=== PATIENT | female | born 1930 | race Caucasian/White ===

== ENCOUNTER 2017-02-01 10:26 | Day surgery (SDC) | payer MEDICARE, BC ==
[2017-02-01] MEDS ORDERED: Sodium Chloride 0.9% 5 ML Syringe FLUSH PRN (10:30)
[2017-02-01] MEDS ORDERED: Lactated Ringers 1,000 ML IV SCH (10:30)
[2017-02-01] MEDS ORDERED: Propofol 200 MG/20 ML SDV ONE (11:25)
[2017-02-01] MEDS ORDERED: Midazolam 1 MG/ML 2 ML SDV ONE (11:25)
--- NOTE | 2017-02-01 12:48 | PCM.PN ---
- General Info Date of Service: 02/01/17 - Review of Systems Systems Review Comment:: 86 y/o female with history of colon cancer and recent symptoms of weight loss here for colonoscopy. Her last colonoscopy with about 3 years ago. She is medically stable to proceed with no recent significant changes to her health status other then recent removal of a melanoma from her arm. I have discussed the proposed colonoscopy with the patient. Risks such as but not limited to bleeding and GI injury discussed and she agrees to proceed. - Patient Data Vitals - Most Recent: Last Vital Signs Temp 97.2 F 02/01/17 11:02 Pulse 68 02/01/17 11:02 Resp 14 02/01/17 11:02 BP 124/78 02/01/17 11:02 Pulse Ox 96 02/01/17 11:02 Weight - Most Recent: 51.528 kg Med Orders - Current: Current Medications Lactated Ringer's (Ringers, Lactated) 1,000 mls @ 50 mls/hr IV ASDIRECTED HENRY Last Admin: 02/01/17 11:29 Dose: 50 mls/hr Sodium Chloride (Syrex Flush) 5 ml FLUSH Q8HR PRN PRN Reason: Keep Vein Open Discontinued Medications Midazolam HCl (Versed 1 Mg/Ml) Confirm Administered Dose 2 mg .ROUTE .STK-MED ONE Stop: 02/01/17 11:26 Propofol (Diprivan 20 Ml) Confirm Administered Dose 400 mg .ROUTE .STK-MED ONE Stop: 02/01/17 11:26 - Problem List Review Problem List Initiated/Reviewed/Updated: Yes - My Orders Last 24 Hours: My Active Orders 01/31/17 15:33 Resuscitation Status Routine 02/01/17 10:30 Patient to Empty Bladder [RC] ASDIRECTED Peripheral IV Care [RC] . DIRECTED Verify Patient Consent Obtain [RC] ASDIRECTED Lactated Ringers [Ringers, Lactated] 1,000 ml IV ASDIRECTED Sodium Chloride 0.9% [Syrex Flush] 5 ml FLUSH Q8HR PRN Peripheral IV Insertion Adult [OM.PC] Routine 02/01/17 Breakfast Nothing Per Oral Diet [DIET] - Assessment Assessment:: History of Colon Cancer Weight loss - Plan Plan:: Colonoscopy
[2017-02-01] MEDS ORDERED: Midazolam 1 MG/ML 2 ML SDV IV ONE (13:06)
[2017-02-01] MEDS ORDERED: Propofol 200 MG/20 ML SDV IV ONE (13:06)
--- NOTE | 2017-02-01 14:05 | PCM.OPNOTE ---
- General Post-Op/Procedure Note Date of Surgery/Procedure: 02/01/17 Operative Procedure(s): Colonoscopy with Polypectomy Findings: Large Cecal Polyp Small Hepatic flexure polyp Diverticulosis Post op colon Pre Op Diagnosis: Weight Loss. History of colon cancer Post-Op Diagnosis: Colon Polyps. Diverticulosis Anesthesia Technique: MAC Primary Surgeon: Bertrand Giron Pathology: Cecal and Hepatic Flexure Polyp EBL in mLs: 2 Complications: None Condition: Good
[2017-02-01 15:39] VITALS: BP 149/60
--- NOTE | 2017-02-02 01:57 | OR ---
DATE OF SURGERY: 02/01/2017 SURGEON: Bertrand Giron MD REFERRING PROVIDER: JAQUELINE Castano PREOPERATIVE DIAGNOSIS: History of colon cancer and weight loss. POSTOPERATIVE DIAGNOSIS: Colon polyps, sigmoid diverticulosis, and postoperative colon. OPERATION PERFORMED: Colonoscopy with polypectomy. INDICATIONS FOR SURGERY: This 86-year-old female has a history of prior colon resection for colon cancer. Her last colonoscopy was about three years ago. She has been recently having symptoms of unexplained weight loss and she is referred for colonoscopy. FINDINGS: In the cecum, adjacent to the ileocecal valve, the patient has a large polypoid lesion. It is a smooth but ulcerated surface and is markedly hyperemic and appearing to have an abnormal surface compared to the remainder of the surrounding mucosa. This was estimated at 3 cm in size. After removal, it had the appearance of a benign lipoma. One additional polyp was noted at the hepatic flexure; this was a 5-mm sessile polyp. The patient has a moderate degree of diverticulosis in the sigmoid region which is the area where she has had a previous colon resection. The anastomosis in this region is patent and there is no visible evidence of cancer recurrence. DESCRIPTION OF PROCEDURE: The patient was taken to the operating room. She was given intravenous sedation, and with her in the left lateral decubitus position, a digital rectal exam was performed showing no rectal masses. The Olympus colonoscope was inserted into the rectum, retroflexed examination of the rectal canal was performed. The scope was then carefully advanced under direct visualization through the entire length of the colon until the cecum was reached. In the cecum, arising from the area of the ileocecal valve, is the large above-described polypoid lesion. Because of the patient's history and its abnormal appearance, it was felt that removal was indicated, so a cautery snare was used to removed this lesion. Because of the thick base, prolonged cautery was required, but the lesion was removed away from the wall of the colon, and there did not appear to be any evidence of colon wall injury at this location. There was also no bleeding noted at the procedure. The specimen was grasped with an endoscopic retrieval device passed through the colonoscope. The colonoscope was removed allowing retrieval of the polyp, and then the colonoscope was reinserted and advanced to the cecum again. Careful examination of the polypectomy site showed it to be clean with no bleeding and no visible evidence of complication. The scope was then slowly withdrawn sequentially re-examining the colonic segments. At the hepatic flexure, a small polyp estimated at 5 mm in size was identified, this was removed with the snare without cautery and retrieved into a polyp trap. The scope was then further withdrawn sequentially re-examining the colonic segments until the entire colon and the rectum had been examined. The scope was removed and the patient was taken from the operating room in satisfactory condition. ESTIMATED BLOOD LOSS: 2 mL. COMPLICATIONS: None. PROGNOSIS: Good. /[id number]/MODL MTDD
== END 2017-02-01 15:30 | disposition home or self-care (01) ==
LOC: KA.SDS 10:26
PROVIDERS: ATTEND Surgery
DX: Z12.11 Encounter for screening for malignant neoplasm of colon (principal); D12.3 Benign neoplasm of transverse colon; D17.5 Benign lipomatous neoplasm of intra-abdominal organs; K57.30 Diverticulosis of large intestine without perforation or abscess without bleeding; I25.10 Atherosclerotic heart disease of native coronary artery without angina pectoris; E03.9 Hypothyroidism, unspecified; Z85.038 Personal history of other malignant neoplasm of large intestine; Z88.8 Allergy status to other drugs, medicaments and biological substances; Z79.899 Other long term (current) drug therapy
CPT/HCPCS: 00810; 45385; J2250; J2704; J7120; 88305

== ENCOUNTER 2017-11-01 00:45 | Emergency (ER) | payer MEDICARE, BC ==
[2017-11-01 01:07] VITALS: BP 166/76
--- NOTE | 2017-11-01 01:22 | EDM.PDOC ---
ED HPI GENERAL MEDICAL PROBLEM - General Chief Complaint: Laceration Stated Complaint: scalp laceration Time Seen by Provider: 11/01/17 01:05 Source of Information: Reports: Patient History Limitations: Reports: No Limitations - History of Present Illness INITIAL COMMENTS - FREE TEXT/NARRATIVE: 87 YO WF presents to ER complaining of fall at home after tripping over a floor fan. Pt reports a small laceration to right side of her scalp from fall. Pt denies any headache or neck pain. Pt drove herself to ER after the fall. Pt states she would not have come if it weren't for the small laceration to her scalp. Pt denies any associated nausea/vomiting. Pt denies any other injury. Pt alert and oriented x 4. Pt doesn't want any xrays/CT scans at this time due to no pain. Pt would like her laceration repaired only. Onset: Today Onset Date: 11/01/17 Onset Time: 00:30 Location: Reports: Head Severity: Mild Improves with: Reports: None Worsens with: Reports: None Associated Symptoms: Reports: No Other Symptoms. Denies: Confusion, Chest Pain , Headaches, Nausea/Vomiting, Shortness of Breath, Weakness - Related Data Allergies Allergy/AdvReac Type Severity Reaction Status Date / Time fentanyl Allergy Hypertensio Verified 11/01/17 01:02 n meperidine [From Demerol] Allergy Vomiting Verified 11/01/17 01:02 sertraline Allergy Hyperactivi Verified 11/01/17 01:02 ty Home Meds: Home Meds Naproxen Sodium [Aleve] 220 mg PO BID PRN 11/17/15 [History] Simvastatin [Zocor] 20 mg PO BEDTIME 11/17/15 [History] Aspirin [Lo-Dose Aspirin EC] 81 mg PO DAILY #0 02/01/17 [Rx] L.acidoph,Paracasei, B.lactis [Probiotic] 1 cap PO DAILY 02/01/17 [History] Levothyroxine [Synthroid] 100 mcg PO DAILY 02/01/17 [History] Past Medical History HEENT History: Reports: Cataract, Hard of Hearing, Impaired Vision Other HEENT History: bilat hearing aides, glasses Cardiovascular History: Reports: CAD, High Cholesterol, Stents Genitourinary History: Reports: None 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: Musculoskeletal History: Reports: Back Pain, Chronic Neurological History: Reports: None Endocrine/Metabolic History: Reports: Hypothyroidism Oncologic (Cancer) History: Reports: Colon, Malignant Melanoma Dermatologic History: Reports: Other (See Below) Other Dermatologic History: Occassional red rash - Past Surgical History Cardiovascular Surgical History: Reports: Coronary Artery Stent GI Surgical History: Reports: Cholecystectomy, Colonoscopy, Other (See Below) Female Surgical History: Reports: Breast Biopsy, Hysterectomy Neurological Surgical History: Reports: Spinal Fusion Oncologic Surgical History: Reports: Biopsy of Breast Social & Family History - Family History Family Medical History: Noncontributory - Caffeine Use Caffeine Use: Reports: Coffee Other Caffeine Use: 1 cup per day ED ROS GENERAL - Review of Systems Review Of Systems: See Below Constitutional: Reports: No Symptoms HEENT: Reports: No Symptoms Respiratory: Reports: No Symptoms Cardiovascular: Reports: No Symptoms Endocrine: Reports: No Symptoms GI/Abdominal: Reports: No Symptoms : Reports: No Symptoms Musculoskeletal: Reports: No Symptoms Skin: Reports: Wound (3 cm right parietal scalp laceration) Neurological: Reports: No Symptoms Psychiatric: Reports: No Symptoms Hematologic/Lymphatic: Reports: No Symptoms Immunologic: Reports: No Symptoms ED EXAM, SKIN/RASH Exam: See Below Exam Limited By: No Limitations General Appearance: Alert, WD/WN, No Apparent Distress Eye Exam: Bilateral Eye: EOMI, PERRL Ears: Normal External Exam, Normal Canal, Hearing Grossly Normal, Normal TMs Nose: Normal Inspection, Normal Mucosa, No Blood Throat/Mouth: Normal Inspection, Normal Lips, Normal Teeth, Normal Gums, Normal Oropharynx, Normal Voice, No Airway Compromise Head: Normocephalic Neck: Normal Inspection, Supple, Non-Tender, Full Range of Motion Respiratory/Chest: No Respiratory Distress, Lungs Clear, Normal Breath Sounds, No Accessory Muscle Use, Chest Non-Tender Cardiovascular: Normal Peripheral Pulses, Regular Rate, Rhythm, No Edema, No Gallop, No JVD, No Murmur, No Rub GI/Abdominal: Normal Bowel Sounds, Soft, Non-Tender, No Organomegaly, No Distention, No Abnormal Bruit, No Mass Back Exam: Normal Inspection, Full Range of Motion, NT Extremities: Normal Inspection, Normal Range of Motion, Non-Tender, No Pedal Edema, Normal Capillary Refill Neurological: Alert, Oriented, CN II-XII Intact, Normal Cognition, Normal Gait, Normal Reflexes, No Motor/Sensory Deficits Psychiatric: Normal Affect, Normal Mood Skin: Warm, Dry, Normal Color, No Rash Location, Skin: Head, Other (3 cm right parietal scalp laceration) ED SKIN PROCEDURES - Laceration/Wound Repair Right Mid-Posterior Head Lac/Wound length In cm: 3 Appearance: Superficial Distal NVT: Neuro & Vascular Intact Skin Prep: Providone-Iodine (Betadine), Saline Closed with: Daren # of Sutures: 3 Sterile Dressing Applied: Nurse Tetanus Status Addressed: Yes Complications: No Course - Vital Signs Last Recorded V/S: Last Vital Signs Temp 36.7 C 11/01/17 00:50 Pulse 78 11/01/17 00:50 Resp 18 11/01/17 00:50 BP 166/76 H 11/01/17 00:50 Pulse Ox 100 11/01/17 00:50 Departure - Departure Time of Disposition: : Disposition: Home, Self-Care 01 Condition: Good Clinical Impression: Scalp laceration Qualifiers: Encounter type: initial encounter Qualified Code(s): S01.01XA - Laceration without foreign body of scalp, initial encounter Head injury Qualifiers: Encounter type: initial encounter Qualified Code(s): S09.90XA - Unspecified injury of head, initial encounter - Discharge Information Instructions: Laceration Care, Adult, [id number], Head Injury, Adult, Easy-to -Read - Assessment/Plan Assessment:: 3 cm right parietal scalp laceration Plan: 1. discharge home 2. head injury precautions and wound care instructions given 3. return in 7 days for staple removal 4. follow up in clinic as needed for further evaluation and treatment as needed 5. return to ER for worsening symptoms
[2017-11-01] MEDS ORDERED: Acetaminophen 500 MG Tab ONE (01:34)
[2017-11-01] MEDS ORDERED: Acetaminophen 500 MG Tab PO ONE (02:21)
== END 2017-11-01 01:35 | disposition home or self-care (01) ==
LOC: KA.ED 00:45
DX: S01.01XA Laceration without foreign body of scalp, initial encounter (principal); S09.90XA Unspecified injury of head, initial encounter; E78.00 Pure hypercholesterolemia, unspecified; I25.10 Atherosclerotic heart disease of native coronary artery without angina pectoris; E03.9 Hypothyroidism, unspecified; Z88.8 Allergy status to other drugs, medicaments and biological substances; W01.0XXA Fall on same level from slipping, tripping and stumbling without subsequent striking against object, initial encounter; Z79.82 Long term (current) use of aspirin; Z79.899 Other long term (current) drug therapy; Z95.5 Presence of coronary angioplasty implant and graft; Y92.009 Unspecified place in unspecified non-institutional (private) residence as the place of occurrence of the external cause
CPT/HCPCS: 12002; 99283; A9270

== ENCOUNTER 2018-04-21 08:38 | Inpatient (IN) | payer MEDICARE, BC ==
--- NOTE | 2018-04-22 16:17 | PCM.HP ---
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 She is transferred for [facility] today. She has a history of non-small cell cancer on immunotherapy. She was hospitalized for right fourth finger abscess infection secondary to MRSA as well as multilobar pneumonia and fevers. She was followed during her hospital stay by hospitalist, infectious disease, general surgery for her finger infection. She had been receiving IV antibiotics through her PICC line. Initially she was on daptomycin as outpatient through her PICC line. Her in- hospital stay she's been on vancomycin, meropenem and doxycycline. Blood cultures showed no growth, legionnaire and strep, resp panel PCR -ve PCP antigen - pending. She had an echocardiogram which showed no evidence of vegetation. Her ejection fraction is 60-65% for grade 104 diastolic dysfunction. Her lab work has been reviewed and her white count is now normal at 5.6 basic metabolic panel is within normal limits. She is asked currently stable and nontoxic appearing. Onset of Symptoms: Reports: Gradual Duration of Symptoms: Reports: Week(s): Location: Reports: Chest, Lower Extremity, Right Quality: Reports: Ache Severity: Mild Improves with: Reports: Medication Worsens with: Reports: None Context: Reports: Sick Contact Associated Symptoms: Denies: Chest Pain, Cough, Diaphoresis, Fever/Chills, Nausea/Vomiting, Shortness of Breath - Related Data Allergies/Adverse Reactions: Allergies Allergy/AdvReac Type Severity Reaction Status Date / Time fentanyl Allergy Hypertensio Verified 04/22/18 13:50 n meperidine [From Demerol] Allergy Vomiting Verified 04/22/18 13:50 pembrolizumab [From Keytruda] Allergy Rash Verified 04/22/18 13:50 sertraline Allergy Hyperactivi Verified 04/22/18 13:50 ty Home Medications: Home Meds Levothyroxine [Synthroid] 100 mcg PO DAILY 02/01/17 [History] traZODone HCl [Trazodone HCl] 25 mg PO BEDTIME 03/28/18 [History] Acetaminophen [Acetaminophen Extra Strength] 500 - 1,000 mg PO Q4HR PRN [History] Doxycycline Hyclate 100 mg PO BID 04/21/18 [History] Edoxaban Tosylate [Savaysa] 1 tab PO DAILY 04/21/18 [History] Nystatin 5 ml PO QID 04/21/18 [History] Omeprazole 40 mg PO ACBREAKFAST 04/21/18 [History] Enoxaparin [Lovenox] 60 mg SQ Q12HR 04/22/18 [History] Hydrocortisone 25 mg PO BID 04/22/18 [History] predniSONE [Prednisone] 15 mg PO DAILY 04/22/18 [History] Past Medical History HEENT History: Reports: Cataract, Hard of Hearing, Impaired Vision Other HEENT History: bilat hearing aides, glasses Cardiovascular History: Reports: CAD, High Cholesterol, Stents Respiratory History: Reports: None Gastrointestinal History: Reports: Colon Polyp Genitourinary History: Reports: None 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 Appt this week Tue and Tue for scans and then Tuesday with oncologist at [facility] for CA treatment plan. Dermatologic History: Reports: Other (See Below) Other Dermatologic History: Occassional red rash - Past Surgical History HEENT Surgical History: Reports: Cataract Surgery Cardiovascular Surgical History: Reports: Coronary Artery Stent Respiratory Surgical History: Reports: Lung Biopsies GI Surgical History: Reports: Cholecystectomy, Colonoscopy, Polypectomy Other GI Surgeries/Procedures: colon resection Female Surgical History: Reports: Breast Biopsy, Hysterectomy, Salpingo- Oophorectomy Endocrine Surgical History: Reports: None Neurological Surgical History: Reports: Spinal Fusion Musculoskeletal Surgical History: Reports: None Oncologic Surgical History: Reports: Biopsy of Breast Other Oncologic Surgeries/Procedures: lung biopsy. colon resection Dermatological Surgical History: Reports: None Social & Family History - Family History Family Medical History: Noncontributory - Tobacco Use Smoking Status *Q: Former Smoker Used Tobacco, but Quit: No Second Hand Smoke Exposure: No - Caffeine Use Caffeine Use: Reports: Coffee, Tea Other Caffeine Use: 1 cup per day - Recreational Drug Use Recreational Drug Use: No H&P Review of Systems - Review of Systems: Review Of Systems: See Below General: Reports: Chills. Denies: Fever, Weakness HEENT: Denies: Headaches, Sinus Congestion, Vertigo Pulmonary: Reports: Shortness of Breath (Oxygen dependent via nasal cannula) Cardiovascular: Reports: Dyspnea on Exertion. Denies: Chest Pain, Palpitations Gastrointestinal: Denies: Abdominal Pain, Nausea, Vomiting Genitourinary: Denies: Dysuria, Hematuria Musculoskeletal: Reports: Joint Swelling (Right fourth fifth finger) Skin: Denies: Cyanosis Psychiatric: Denies: Confusion Neurological: Denies: Confusion, Dizziness, Headache, Numbness, Trouble Speaking , Change in Speech Hematologic/Lymphatic: Reports: Anemia Immunologic: Reports: Other (Immunocompromise) Exam - Exam Exam: See Below - Vital Signs Vital Signs: Last Vital Signs Temp 98.8 F 04/22/18 15:00 Pulse 79 04/22/18 15:00 Resp 16 04/22/18 15:00 BP 110/58 L 04/22/18 15:00 Pulse Ox 97 04/22/18 15:00 Weight: 109 lb 8 oz - Exam Quality Assessment: Supplemental Oxygen. No: Central Line/PICC General: Alert, Oriented HEENT: Conjunctiva Clear, EOMI, Hearing Intact, Pupils Equal, PERRLA Neck: Supple, Trachea Midline Lungs: Clear to Auscultation, Normal Respiratory Effort Cardiovascular: Regular Rate, Systolic Murmur, Diastolic Murmur GI/Abdominal Exam: Normal Bowel Sounds, Soft, Non-Tender Back Exam: Normal Inspection Extremities: Normal Inspection, No Pedal Edema Peripheral Pulses: 1+: Dorsalis Pedis (L), Dorsalis Pedis (R), 2+: Carotid (L), Carotid (R), Radial (L), Radial (R) Skin: Warm, Dry, Intact Neurological: Strength Equal Bilateral, Normal Speech Neuro Extensive - Mental Status: Alert, Oriented x3, Normal Mood/Affect, Normal Cognition, Memory Intact Neuro Extensive - Motor, Sensory, Reflexes: CN II-XII Intact Psychiatric: Alert, Normal Affect, Normal Mood Problem List Initiated/Reviewed/Updated: Yes Orders Last 24hrs: Bilateral pneumonia _CT chest confirms extensive bilateral infiltrates. There is no mediastinal mass or adenopathy -Hemodynamically stable -Continue with Lovenox 1 mg every 12 hours. Will restartSavaysa upon discharge from [facility] -Echocardiogram limited with no RV strain Acute hypoxic respiratory failure likely multifactorial worsening due to the status of pneumonia Acute diastolic heart failure and physical deconditioning -Infectious disease recommended bronchoscoping given continued fever despite being on broad-spectrum antibiotic therapy -Patient and family have decided not to proceed with bronchial scope -Patient requiring continued oxygen therapy for liters per minute nasal cannula Sepsis secondary to multilobar pneumonia treating for possible hospital- acquired given her recent hospital stay, atypical organisms and viral organisms -Echo with no evidence of vegetation -Currently on Meropenem, doxycycline and vancomycin -Blood cultures no growth to date, Legionella and strep, resp panael PCR -ve PCP antigen pending Right fourth finger infection and abscess secondary to MRSA. History of I&D -Orthopedic and general surgery consults -On vancomycin Mild hyponatremia likely hypovolemic Mild hypokalemia replaced oral potassium -Will monitor with labs Mild thrombocytopenia Macrocytic anemia Hypertension HLD CODE STATUS -DNR/DNI DVT prophylaxis -Lovenox Assessment/Plan Comment:: Bilateral pneumonia _CT chest confirms extensive bilateral infiltrates. There is no mediastinal mass or adenopathy -Hemodynamically stable -Continue with Lovenox 1 mg every 12 hours. Will restartSavaysa upon discharge from swing bed -Echocardiogram limited with no RV strain Acute hypoxic respiratory failure likely multifactorial worsening due to the status of pneumonia Acute diastolic heart failure and physical deconditioning -Infectious disease recommended bronchoscoping given continued fever despite being on broad-spectrum antibiotic therapy -Patient and family have decided not to proceed with bronchial scope -Patient requiring continued oxygen therapy for liters per minute nasal cannula Sepsis secondary to multilobar pneumonia treating for possible hospital- acquired given her recent hospital stay, atypical organisms and viral organisms -Echo with no evidence of vegetation -Currently onMeropenem, doxycycline and vancomycin -Blood cultures no growth to date, Legionella and strep, resp panael PCR -ve PCP antigen pending Right fourth finger infection and abscess secondary to MRSA. 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 -Oncology follows as outpatient Immunocompromise Small pericardial effusion on CT Episode of SVT now on regular rhythm Acute diastolic heart failure-echo ejection fraction is 60-65% -Grade 1 of 4 diastolic dysfunction Valvular heart disease -Mild to moderate aortic valve regurgitation -Mild mitral valve regurgitation -Mild to moderate tricuspid valve regurgitation Chronic steroid use -On stress dose by mouth steroid History of colon cancer treated 15 years ago Mild hyponatremia likely hypovolemic Mild hypokalemia replaced oral potassium -Will monitor with labs Mild thrombocytopenia Macrocytic anemia Hypertension HLD CODE STATUS -DNR/DNI DVT prophylaxis -Lovenox
[2018-04-22] MEDS ORDERED: Acetaminophen 500 MG Tab PO PRN (17:02)
[2018-04-22] MEDS: Enoxaparin 60 MG/0.6 ML Syringe SUBCUT SCH (18:26)
[2018-04-22] MEDS: Nystatin Susp 100,000 Unit/ML 5 ML UD Cup PO SCH (21:10)
[2018-04-22] MEDS: traZODone 50 MG Tab PO SCH (21:10)
[2018-04-23] MEDS: Omeprazole 20 MG Cap.CR PO SCH (06:34)
[2018-04-23] MEDS ORDERED: Levothyroxine 100 MCG Tab PO SCH (09:00)
[2018-04-23] MEDS ORDERED: EDOXABAN TOSYLATE PO SCH (09:00)
[2018-04-23] MEDS: Hydrocortisone 10 MG Tab PO SCH ×2 (09:00→21:11)
[2018-04-23] MEDS: Nystatin Susp 100,000 Unit/ML 5 ML UD Cup PO SCH ×4 (09:01→21:10)
[2018-04-23] MEDS: Enoxaparin 60 MG/0.6 ML Syringe SUBCUT SCH ×2 (09:02→21:08)
[2018-04-23] MEDS: traZODone 50 MG Tab PO SCH (21:10)
[2018-04-24] MEDS: Omeprazole 20 MG Cap.CR PO SCH (06:37)
[2018-04-24] MEDS: Levothyroxine 100 MCG Tab PO SCH (06:40)
[2018-04-24] MEDS: Nystatin Susp 100,000 Unit/ML 5 ML UD Cup PO SCH ×4 (08:30→20:41)
[2018-04-24] MEDS: Hydrocortisone 10 MG Tab PO SCH ×2 (08:31→20:39)
[2018-04-24] MEDS: Enoxaparin 60 MG/0.6 ML Syringe SUBCUT SCH (08:31)
[2018-04-24] MEDS: Potassium Chloride 20 MEQ Tab.ER PO SCH (18:28)
[2018-04-24] MEDS: Apixaban 5 MG Tab PO SCH (20:40)
[2018-04-24] MEDS ORDERED: traZODone 50 MG Tab PO PRN (21:00)
[2018-04-25] MEDS: Levothyroxine 100 MCG Tab PO SCH (06:30)
[2018-04-25] MEDS: Omeprazole 20 MG Cap.CR PO SCH (06:30)
[2018-04-25 08:13] LABS: ANION GAP 5.7 mmol/L (5-15); CHLORIDE,CL 98 mmol/L (98-115); SODIUM,NA 134 mmol/L (136-145)
[2018-04-25] MEDS: Apixaban 5 MG Tab PO SCH ×2 (08:32→21:02)
[2018-04-25] MEDS: Nystatin Susp 100,000 Unit/ML 5 ML UD Cup PO SCH ×4 (08:33→21:02)
[2018-04-25] MEDS: Potassium Chloride 20 MEQ Tab.ER PO SCH ×2 (08:34→18:12)
[2018-04-25] MEDS: Hydrocortisone 10 MG Tab PO SCH ×2 (08:35→21:03)
--- NOTE | 2018-04-25 08:36 | PN ---
04/24/2018 PATIENT NAME: SLADE YOUNG HISTORY OF PRESENT ILLNESS: This is an 87-year-old female who was admitted to [facility] on 04[facility]22[facility]. She was transferred for swing bed/physical therapy and reconditioning. The patient has history of non-small cell cancer and is on immunotherapy. She was hospitalized for right 4th finger abscess infection secondary to MRSA as well as multi-lobar pneumonia and fevers. She was followed during her hospital stay at [facility] in [place] by Hospitalist, Infectious Disease, and General Surgery. She had a PICC line placed and was receiving IV antibiotics. However, these have been stopped. She continues on oral doxycycline. She had an echocardiogram, which shows no evidence of vegetation. Her ejection fraction is 60% to 65%. She did have issues with multiple extensive but small PEs bilaterally. She has been treated with Lovenox for the same. The goal was to switch her to an oral agent, which is being done today. She is being switched to Eliquis. She did have labs this morning. CBC was unremarkable with an actual subnormal white blood cell count. WBC was 3.93, RBCs 3.09, hemoglobin 10.5, hematocrit 31.0, platelets 157,000. She had a chemistry profile which mostly included LFTs. Abnormalities include a low alkaline phosphatase of 40; C-reactive protein of 3.5; total protein of 4.9; albumin of 2.22. I did add on a potassium since she did have issues with hypokalemia while she was hospitalized in [place], and her potassium today was 2.9. The patient feels fairly good today, just feels tired and cold she states. Vital signs have been stable, and she has been afebrile. She was treated with vancomycin and meropenem while hospitalized and now is just on oral doxycycline. She was placed on high-dose steroids as well, which can be tapered down now. Prior to hospitalization, the patient was taking Keytruda, and she developed an immunocompromise rash from the same and was treated with extremely high doses of steroids. The patient was to be transferred on 04/21/2018, however, had some issues with desaturations, and they kept her one more day. A CT scan from 04/17/2018 showed extensive bilateral infiltrates, small bilateral pulmonary emboli, small to moderate right and small left pleural effusions. PHYSICAL EXAMINATION: VITAL SIGNS: Temp is 97.2, pulse 65, respirations 24, blood pressure 126/80, she is saturating 95%, requiring 5 L of oxygen to maintain that oxygen saturation. SKIN: Warm and dry to touch. CARDIAC: Reveals an irregularly irregular rhythm. She has had an EKG in the past, which showed a sinus rhythm with frequent PVCs. When she had her echocardiogram, she was in normal sinus rhythm. LUNGS: Have some faint rales throughout. No wheezes or rhonchi. ABDOMEN: Soft, nontender. Bowel sounds present in all four quadrants. EXTREMITIES: There is no pedal edema. IMPRESSION: 1. Non-small cell carcinoma past treatment with Keytruda with an immunocompromised rash which was treated with high-dose steroids. 2. Multiple bilateral pulmonary emboli. She has received Lovenox for several days and will now be treated with Eliquis. Renal function will be checked tomorrow. 3. Bilateral pneumonia. She was treated with IV vancomycin as well as meropenem, and we will continue on oral doxycycline. 4. Hypothyroidism, stable on thyroid replacement. 5. Deconditioning and weakness, which is one of the criteria for her swing bed stay. She will receive a physical therapy evaluation, and hopefully will progress to a point where she can return home. 6. Gastroesophageal reflux disease, on omeprazole. 7. High-dose steroids. These will be tapered down, and the patient will be switched back over to her oral prednisone. 8. Hypokalemia. This will be replaced orally with 20 mEq b.i.d. Labs will be checked tomorrow to include a CBC and a CMP. Dr. Velazquez is aware of the patient's presence in our facility and has reviewed all the old records as well as myself. /[id number]/MODL
[2018-04-25] MEDS ORDERED: Potassium Chloride 20 MEQ Tab.ER PO SCH (08:40)
[2018-04-25] MEDS ORDERED: Apixaban 5 MG Tab PO SCH (08:45)
[2018-04-25] MEDS: Carboxymethylcellulose Sodium 0.5% Ophth Soln 15 ML Bottle EYEBOTH SCH ×2 (13:54→21:04)
[2018-04-26] MEDS: Omeprazole 20 MG Cap.CR PO SCH (07:44)
[2018-04-26] MEDS: Levothyroxine 100 MCG Tab PO SCH (07:44)
[2018-04-26] MEDS: Potassium Chloride 20 MEQ Tab.ER PO SCH ×2 (07:44→17:43)
[2018-04-26 08:40] LABS: ANION GAP 10.8 mmol/L (5-15); CHLORIDE,CL 99 mmol/L (98-115); SODIUM,NA 137 mmol/L (136-145)
[2018-04-26] MEDS: Hydrocortisone 10 MG Tab PO SCH (08:44)
[2018-04-26] MEDS: Nystatin Susp 100,000 Unit/ML 5 ML UD Cup PO SCH ×4 (08:44→21:15)
[2018-04-26] MEDS: Apixaban 5 MG Tab PO SCH ×2 (08:44→21:15)
[2018-04-26] MEDS: Carboxymethylcellulose Sodium 0.5% Ophth Soln 15 ML Bottle EYEBOTH SCH ×2 (08:44→21:14)
[2018-04-27] MEDS: Omeprazole 20 MG Cap.CR PO SCH (06:41)
[2018-04-27] MEDS: Levothyroxine 100 MCG Tab PO SCH (06:41)
[2018-04-27 07:59] LABS: ANION GAP 12.1 mmol/L (5-15)
[2018-04-27] MEDS: Apixaban 5 MG Tab PO SCH ×2 (08:08→20:42)
[2018-04-27] MEDS: Nystatin Susp 100,000 Unit/ML 5 ML UD Cup PO SCH ×4 (08:08→20:43)
[2018-04-27] MEDS: Hydrocortisone 10 MG Tab PO SCH (08:11)
[2018-04-27] MEDS: Carboxymethylcellulose Sodium 0.5% Ophth Soln 15 ML Bottle EYEBOTH SCH ×2 (08:14→20:43)
[2018-04-27] MEDS: Potassium Chloride 20 MEQ Tab.ER PO SCH ×2 (08:48→17:45)
[2018-04-28] MEDS: Omeprazole 20 MG Cap.CR PO SCH (07:28)
[2018-04-28] MEDS: Levothyroxine 100 MCG Tab PO SCH (07:28)
[2018-04-28] MEDS: Apixaban 5 MG Tab PO SCH ×2 (08:13→20:21)
[2018-04-28] MEDS: Carboxymethylcellulose Sodium 0.5% Ophth Soln 15 ML Bottle EYEBOTH SCH ×2 (08:13→20:21)
[2018-04-28] MEDS: Nystatin Susp 100,000 Unit/ML 5 ML UD Cup PO SCH ×4 (08:13→20:21)
[2018-04-28] MEDS: Hydrocortisone 10 MG Tab PO SCH (08:13)
[2018-04-28] MEDS ORDERED: traMADol 50 MG Tab PO PRN (12:18)
[2018-04-28 12:52] LABS: BASE EXCESS ARTERIAL 0 mmol/L (-2-3); BICARBONATE,ARTERIAL 23.6 mmol/L (22-26); O2 DELIVERY DEVICE NASAL CANNULA; O2 SATURATION ARTERIAL 93 % (95-98); PCO2 ARTERIAL 34 mmHG (35-45); PO2 ARTERIAL 63 mmHG (80-105)
--- NOTE | 2018-04-28 13:37 | PN ---
04/28/2018 PATIENT NAME: SLADE YOUNG SWING BED PROGRESS NOTE This is an 87-year-old female who was transferred to our facility on 04/22/2018 from [facility]. She has a history of non-small cell cancer. She was being treated with Keytruda, however, developed immunocompromised rash, which prompted the discontinuation of the Keytruda. She was treated with high-dose steroids for this. She was actually hospitalized for a right 4th finger abscess infection secondary to MRSA. She was also found to have multilobar pneumonia with fever. During hospitalization, it is documented that she did have several small pulmonary emboli as well. She was initially treated with Lovenox and is now being treated with Eliquis 5 mg b.i.d. She had an echocardiogram during her hospitalization at [facility] showed that her ejection fraction is 60% to 65% with diastolic dysfunction. The patient has completed IV antibiotics for her multilobar pneumonia and is now on oral doxycycline. She has had problems with hypokalemia and has been replaced orally which normalized her potassium. She continues on potassium [address] scan from 04/17/2018 showed extensive bilateral infiltrates, small bilateral pulmonary emboli, small to moderate right and small left pleural effusions. The patient's labs from today shows a normal sodium of 138. Potassium is normal at 3.7. BUN and creatinine are normal at 22 and 0.99 respectively with an estimated GFR of 53. Her glucose today was 99. Her calcium was normal at 8.7. The patient reports feeling "okay, just tired." The patient is still requiring 5 L of oxygen to maintain an oxygen saturation of 95%. She is receiving physical therapy for deconditioning and weakness. Her ultimate goal is to return home to living independently as she was prior to her hospitalizations. PHYSICAL EXAMINATION: VITAL SIGNS: On examination, temp was 99.4 at 7:00 a.m. this morning when the nurse recheck it at 7:45 it was 98.9. Pulse is 88, respirations 22, blood pressure 123/63, oxygen saturation is 95% on 5 L of oxygen. SKIN: Warm, somewhat pale and dry to touch. CARDIAC: Reveals an irregularly irregular heart rhythm. She has had EKG, which shows a normal sinus rhythm with frequent PACs. She does have a 2/6 cardiac murmur auscultated. LUNGS: Clear. I do not appreciate any rales, wheezes, or rhonchi today. ABDOMEN: Soft, nontender. Bowel sounds present in all 4 quadrants. EXTREMITIES: There is no pedal edema. IMPRESSION: 1. Deconditioning and weakness. She is receiving physical therapy for the same with the ultimate goal of returning home to independent living. 2. Non-small cell carcinoma. Past treatment with Keytruda with an immunocompromised rash which was treated with high-dose steroids, stable. 3. Multiple bilateral pulmonary emboli. She will be treated with Eliquis 5 mg b.i.d. 4. Bilateral pneumonia. She was treated with IV vancomycin as well as meropenem and was also treated orally with doxycycline. 5. Hypothyroidism, stable on thyroid replacement. 6. Gastroesophageal reflux disease, on gastric protection with omeprazole. 7. High-dose steroids. These have been tapered down. The patient will be switched back over to oral prednisone. 8. Hypokalemia. This has resolved with oral replacement. I have discussed my findings with Dr. Janette Velazquez and she concurs with my findings. /[id number]/MODL
[2018-04-28] MEDS ORDERED: Sodium Chloride 0.9% 1,000 ML IV SCH (15:30)
[2018-04-28] MEDS: Potassium Chloride 20 MEQ Tab.ER PO SCH (17:29)
[2018-04-28] MEDS ORDERED: Metoprolol Tartrate 25 MG Tab PO ONE (20:05)
[2018-04-29] MEDS: Omeprazole 20 MG Cap.CR PO SCH (06:37)
[2018-04-29] MEDS: Levothyroxine 100 MCG Tab PO SCH (06:37)
[2018-04-29 08:22] LABS: ANION GAP 13.5 mmol/L (5-15)
[2018-04-29] MEDS: Apixaban 5 MG Tab PO SCH ×2 (09:41→22:01)
[2018-04-29] MEDS: predniSONE 10 MG Tab PO SCH (09:41)
[2018-04-29] MEDS: Carboxymethylcellulose Sodium 0.5% Ophth Soln 15 ML Bottle EYEBOTH SCH ×2 (09:43→22:00)
[2018-04-29] MEDS: Morphine 2 MG/ML Syringe IVPUSH PRN ×2 (15:00→21:29)
[2018-04-29] MEDS: LORazepam 2 MG/ML SDV IVPUSH PRN (18:46)
[2018-04-29] MEDS: Nystatin Susp 100,000 Unit/ML 5 ML UD Cup PO SCH ×2 (19:22→19:23)
[2018-04-29] MEDS: Potassium Chloride 20 MEQ Tab.ER PO SCH (19:23)
[2018-04-30] MEDS: Morphine 2 MG/ML Syringe IVPUSH PRN ×4 (00:10→11:32)
[2018-04-30] MEDS: Sodium Chloride 0.9% 10 ML Syringe FLUSH PRN ×3 (00:14→05:00)
[2018-04-30] MEDS: LORazepam 2 MG/ML SDV IVPUSH PRN (02:40)
[2018-04-30 06:22] VITALS: BP 151/70
[2018-04-30] MEDS: Omeprazole 20 MG Cap.CR PO SCH (07:36)
[2018-04-30] MEDS: Levothyroxine 100 MCG Tab PO SCH (07:36)
[2018-04-30] MEDS: Apixaban 5 MG Tab PO SCH (08:41)
[2018-04-30] MEDS: predniSONE 10 MG Tab PO SCH (08:41)
[2018-04-30] MEDS: Carboxymethylcellulose Sodium 0.5% Ophth Soln 15 ML Bottle EYEBOTH SCH (08:42)
[2018-04-30] MEDS ORDERED: LORazepam 2 MG/ML SDV IVPUSH PRN (11:49)
--- NOTE | 2018-04-30 11:55 | PCM.SN ---
- Free Text/Narrative Note: Aurora was made comfort care, DNR/DNI on 04/29/18. Beth Gasca PA-C (and her PCP) has been following Aurora since she returned swingbed 1 week ago. She has clinically deteriorated and in discussions that Beth has had with family as well as discussions with nursing staff and family they elected to make her comfort care. She is on morphine and lorazepam. I did consult with pharmacy about whether or not she needed some IV steroid and was advised that since she is at 15 mg daily she could stop and IV steroids would not be necessary. I was contacted by nursing staff at 10:50 AM today that she is not really responding to voice anymore and she is not taking anything orally. Because of this and her comfort care status her oral meds have been discontinued. Will continue with her eye drops for comfort as well as the morphine and lorazepam IV for anxiety/agitation/pain. I inquired if she was having excessive secretions and nursing staff stated she was not at this time. Order for comfort care placed and her code status is changed from DNR/DNI to DNR/DNI/Comfort measures. I did update Beth Elo with regard to her clinical status. I offered to come up and speak with family and they did not feel they needed it at this time.
--- NOTE | 2018-05-01 08:51 | PN ---
04/28/2018 PATIENT NAME: SLADE YOUNG ADDENDUM: The patient also has an MRSA infection of her right ring finger, which has been incised and drained, and she has been covered with IV antibiotics previously. A culture was repeated on the day of her arrival at our facility and it did grow a light growth of MRSA. The MRSA is sensitive to doxycycline. The patient was on doxycycline for coverage of atypical organism for pneumonia and was stopped on Tuesday. We will resume its use. I also had a conference with the patient's family including her son, Richardson and her daughter, Brdiget. They were concerned that their mother seems to be doing poorly and is deteriorating. We did have a discussion regarding pain control etc. The patient has been on oral narcotics at home. She has a prescription for tramadol in hospital. 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 We did arterial blood gases which showed a pH of 7.45, a pCO2 was 34, her PO2 was 63. We did change her oxygen from a nasal cannula to a mask to deliver higher concentrations of oxygen. This evening, I received a call from the nurse staff reporting tachycardia and in a very erratic heart rate as well as crackles in her lungs. We had started her on IV fluids due to the fact that we thought perhaps, she was dehydrated, but she developed rales and the IV fluids were discontinued this evening. 12- lead EKG initially showed atrial fibrillation and when it was repeated showed sinus rhythm with premature atrial contractions which she has had before. She is anticoagulated in case she is going in and out of atrial fibrillation. We did give her a one time dose of metoprolol 25 mg this evening. /[id number]/MODL
--- NOTE | 2018-05-02 12:55 | DISCH ---
HOSPITAL COURSE: This is an 87-year-old female who was admitted to swing bed in our facility on 04/22/2018. She was admitted to swing bed after being hospitalized at [facility]. She was hospitalized for right 4th finger abscess infection secondary to MRSA as well as multilobar pneumonia and fevers. She was followed in [place] by hospitalist, Infectious Disease specialists, General Surgery for her finger infection. She received antibiotics through a PICC line to include vancomycin, meropenem, as well as oral doxycycline. Blood cultures that show no growth. She had an echocardiogram during her hospitalization, which showed an ejection fraction of 60-65% for grade 1/4 diastolic dysfunction. The patient was admitted with oral antibiotics to receive physical therapy. She initially did fairly well with physical therapy. The patient started becoming more fatigued and hypoxic as the week progressed. I saw her last on 04/28/2018. At that time, we did arterial blood gases which showed a PO2 of 63, pCO2 of 34, pH of 7.45. We did change her oxygen from nasal cannula to mask. Tuesday morning, I spoke with the nursing staff and they reported that the patient had difficulty waking up for breakfast. She was able to take her pills orally with crushed in some yogurt. As the day progressed, the patient did deteriorate further to a more nonresponsive state. On Tuesday morning which would have been 04/30/2018, the patient was changed to comfort care and kept comfortable with morphine as well as lorazepam. The patient at 12:50 p.m. Family was at her bedside when she . FINAL DIAGNOSES: 1. Methicillin-resistant Staphylococcus aureus infection of the ring finger, which had improved, but still grew a light growth of methicillin-resistant Staphylococcus aureus infection. She was continued on oral doxycycline. 2. Non-small cell carcinoma of the lung. She did have treatment with Keytruda with an immunocompromise rash which is treated with high-dose steroids. 3. Multiple bilateral pulmonary emboli. She was anticoagulated with Eliquis 5 mg b.i.d. 4. Bilateral pneumonia. She was treated with IV vancomycin and meropenem in [place] and was treated with doxycycline for atypicals and continued on doxycycline for the sensitivity to the methicillin-resistant Staphylococcus aureus in her finger to the doxycycline. 5. Deconditioning weakness. She did receive a couple of physical therapy sessions, however, did not progress. 6. Hypothyroidism. She was on thyroid replacement. 7. Gastroesophageal reflux disease. She was gastric protected with omeprazole. 8. High-dose steroids that have been tapered down and switched back to oral prednisone. 9. Hypokalemia. The patient was replaced with oral potassium supplementation. Dr. Janette Camp was made aware of the patient's . /[id number]/MODL
== END 2018-04-30 15:00 | disposition expired | DRG 193 ==
LOC: KA.MS 04-22 13:00
PROVIDERS: ADMIT Internal Medicine; ATTEND Internal Medicine
DX: J18.9 Pneumonia, unspecified organism (principal); I50.31 Acute diastolic (congestive) heart failure; L02.511 Cutaneous abscess of right hand; C34.90 Malignant neoplasm of unspecified part of unspecified bronchus or lung; E87.1 Hypo-osmolality and hyponatremia; I31.3 Pericardial effusion (noninflammatory); I47.1 Supraventricular tachycardia; C79.51 Secondary malignant neoplasm of bone; Z51.5 Encounter for palliative care; Z66 Do not resuscitate; R09.02 Hypoxemia; R53.1 Weakness; E87.6 Hypokalemia; D69.6 Thrombocytopenia, unspecified; D53.9 Nutritional anemia, unspecified; I11.0 Hypertensive heart disease with heart failure; H91.90 Unspecified hearing loss, unspecified ear; H54.7 Unspecified visual loss; I25.10 Atherosclerotic heart disease of native coronary artery without angina pectoris; G89.29 Other chronic pain; E78.5 Hyperlipidemia, unspecified; M54.9 Dorsalgia, unspecified; E86.1 Hypovolemia; L27.0 Generalized skin eruption due to drugs and medicaments taken internally; T45.1X5A Adverse effect of antineoplastic and immunosuppressive drugs, initial encounter; R53.81 Other malaise; K21.9 Gastro-esophageal reflux disease without esophagitis; F41.9 Anxiety disorder, unspecified; I08.3 Combined rheumatic disorders of mitral, aortic and tricuspid valves; Z95.5 Presence of coronary angioplasty implant and graft; Z85.038 Personal history of other malignant neoplasm of large intestine; Z85.820 Personal history of malignant melanoma of skin; Z87.891 Personal history of nicotine dependence; Z88.8 Allergy status to other drugs, medicaments and biological substances; Z79.899 Other long term (current) drug therapy; Z79.52 Long term (current) use of systemic steroids; Z86.14 Personal history of Methicillin resistant Staphylococcus aureus infection
CPT/HCPCS: 36415; 36600; 80048; 80053; 80076; 81001; 82803; 84132; 85025; 85651; 86140; 87070; 87077; 87086; 87088; 87147; 87186; 87205; 93005; 97110-GP; 97162-GP; A9270-GY; J1650; J2060; J2270; J7030